=== PATIENT | male | born 1975 | race Caucasian/White ===

== ENCOUNTER 2018-12-15 19:04 | Emergency (ER) | payer OTHER ==
--- NOTE | 2018-12-15 20:18 | XRAY Report ---
Reason: Left hand injury Procedure Date: 12/15/2018 Accession Number: [id number] / [id number] Procedure: XR - Hand 3 View LT CPT Code: FULL RESULT: EXAM: LEFT HAND RADIOGRAPHY EXAM DATE: 12/15/2018 07:58 PM. CLINICAL HISTORY: Trauma COMPARISON: None. TECHNIQUE: 3 views. FINDINGS: Bones: Normal. No fractures or bone lesions. Joints: Normal. No subluxations. Soft Tissues: Normal. No soft tissue swelling. IMPRESSION: Normal hand radiography. [facility]
--- NOTE | 2018-12-15 21:39 | ED Physician Documentation ---
PD HPI UPPER EXT INJURY - Stated complaint Stated Complaint: L HAND INJ - Chief complaint Chief Complaint: Trauma Ext - History obtained from History obtained from: Patient - History of Present Illness Location: Left, Hand Type of injury: Crush (mallet) Where injury occurred: Home Timing - onset: How many hours ago (3) Timing - duration: Hours (3) Timing - details: Abrupt onset Pain level max: 7 Pain level now: 5 Improved by: Rest, Ice Worsened by: Moving, Palpating Associated symptoms: Swelling, Discolored (ecchymosis). No: Weakness, Numbness, Tingling Contributing factors: No: Anticoagulated - Additonal information Additional information: pt is right handed Review of Systems Neurologic: denies: Focal weakness, Numbness PD PAST MEDICAL HISTORY - Past Medical History Past Medical History: No - Past Surgical History Past Surgical History: No - Allergies Allergies/Adverse Reactions: Allergies Allergy/AdvReac Type Severity Reaction Status Date / Time No Known Drug Allergies Allergy Verified 12/15/18 19:26 - Living Situation Living Situation: reports: With family Living Arrangement: reports: At home - Family History Family history: reports: Non contributory - Immunizations Immunizations are current?: Yes Immunizations: TDAP current <10years PD ED PE NORMAL - Vitals Vital signs reviewed: Yes - General General: Alert and oriented X 3, No acute distress - Derm Derm: Warm and dry - Extremities Extremities: Other (L hand - TTP over the 2nd metacarpal. NVI. mild swelling. no deformity. ) - Neuro Neuro: Alert and oriented X 3 Results - Vitals Vitals: Vital Signs - 24 hr 12/15/18 12/15/18 19:23 21:44 Temperature 36.5 C 36.3 C L Heart Rate 75 58 L Respiratory 16 16 Rate Blood Pressure 142/95 H 150/86 H O2 Saturation 99 100 Oxygen O2 Source Room air - Rads (name of study) L hand xray Radiology: Prelim report reviewed, EMP read contemporaneously, See rad report (normal xray) PD MEDICAL DECISION MAKING - ED course Complexity details: reviewed results, re-evaluated patient, considered differential, d/w patient ED course: normal xray. no fracture. Patient declines splint or pain meds. Pt is right handed. Patient counseled regarding signs and symptoms for which I believe and urgent re-evaluation would be necessary. Patient with good understanding of and agreement to plan and is comfortable going home at this time This document was made in part using voice recognition software. While efforts are made to proofread this document, sound alike and grammatical errors may occur. Departure - Departure Disposition: 01 Home, Self Care Clinical Impression: Contusion of left hand Qualifiers: Encounter type: initial encounter Qualified Code(s): S60.222A - Contusion of left hand, initial encounter Condition: Good Instructions: ED Crush Injury Finger No Fx Follow-Up: your,doctor as needed [Other] Comments: Your x-rays do not show any fractures today. Return if you worsen. Follow-up with your doctor for further evaluation and care. Discharge Date/Time: 12/15/18 21:44
[2018-12-15 21:44] VITALS: BP 150/86
== END 2018-12-15 21:44 | disposition home or self-care (01) ==
LOC: ED 19:04
DX: S60.222A Contusion of left hand, initial encounter (principal); W22.8XXA Striking against or struck by other objects, initial encounter; Y92.009 Unspecified place in unspecified non-institutional (private) residence as the place of occurrence of the external cause
CPT/HCPCS: 99282; 99283

== ENCOUNTER 2019-10-27 07:45 | Emergency (ER) | payer OTHER ==
--- NOTE | 2019-10-27 07:53 | ED Physician Documentation ---
PD HPI URI - Stated complaint Stated Complaint: FEVER,COUGH - History obtained from History obtained from: Patient - History of Present Illness Timing - onset: Yesterday Timing duration: Days (1) Timing details: Abrupt onset, Still present Associated symptoms: Fever (mild to 99.8), Dry cough, Dyspnea (some coughing to point of emesis of phlegm). 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 No: Sick contact, Travel, Immunocompromised, COPD / asthma Worsened by: Activity Similar symptoms before: Has not had sx before Recently seen: Not recently seen Review of Systems Constitutional: reports: Fever, Myalgias Nose: reports: Congestion. denies: Rhinorrhea / runny nose Throat: denies: Sore throat Cardiac: denies: Chest pain / pressure Respiratory: reports: Cough. denies: Wheezing GI: reports: Vomiting (couple times with coughing). denies: Diarrhea Skin: denies: Rash Neurologic: denies: Altered mental status, Headache PD PAST MEDICAL HISTORY - Past Medical History Past Medical History: No Cardiovascular: None Respiratory: None - Past Surgical History Past Surgical History: No - Present Medications Home Medications: Ambulatory Orders Medication Instructions Recorded Confirmed Benzonatate [Tessalon Perle] 100 - 200 mg PO TID PRN #30 capsule 10/27/19 Ibuprofen 200 mg PO 10/27/19 guaiFENesin [Guaifenesin] 100 mg PO Q6H PRN #240 ml 10/27/19 - Allergies Allergies/Adverse Reactions: Allergies Allergy/AdvReac Type Severity Reaction Status Date / Time No Known Drug Allergies Allergy Verified 10/27/19 07:58 - Social History Does the pt smoke?: No Smoking Status: Never smoker - Immunizations Immunizations are current?: Yes Immunizations: TDAP current <10years - POLST Patient has POLST: No PD ED PE NORMAL - Vitals Vital signs reviewed: Yes - General General: Alert and oriented X 3, No acute distress, Well developed/nourished - HEENT HEENT: Ears normal, Moist mucous membranes, Pharynx benign - Neck Neck: Supple, no meningeal sign, No adenopathy - Cardiac Cardiac: RRR - Respiratory Respiratory: No respiratory distress, Clear bilaterally, Other (He does have a mild wheeziness type cough with deep breathing.) - Derm Derm: Normal color, Warm and dry, No rash Results - Vitals Vitals: Vital Signs - 24 hr 10/27/19 07:50 Temperature 36.6 C Heart Rate 70 Respiratory 17 Rate Blood Pressure 158/109 H O2 Saturation 98 Oxygen O2 Source Room air - Labs Labs: Laboratory Tests 10/27/19 08:15 Influenza A (Rapid) Negative Influenza B (Rapid) Negative PD MEDICAL DECISION MAKING - ED course Complexity details: reviewed results, considered differential (He is concerned about the coronavirus and influenza given his public interactions for his job and going to a conference next week. He is requesting testing for those and this can be reasonable. We will get the flu test back rapidly today and the coated test in a day or 2. Meanwhile he can decrease public interaction and do good social distancing and personal hygiene. We can impact his cough with some Tessalon and cough medicine.), d/w patient Departure - Departure Disposition: 01 Home, Self Care Clinical Impression: Upper respiratory infection Qualifiers: URI type: unspecified URI Qualified Code(s): J06.9 - Acute upper respiratory infection, unspecified Condition: Stable Record reviewed to determine appropriate education?: Yes Instructions: ED Upper Resp Infec No Abx Tx Prescriptions: Benzonatate [Tessalon Perle] 100 - 200 mg PO TID PRN #30 capsule PRN Reason: Cough guaiFENesin [Guaifenesin] 100 mg PO Q6H PRN #240 ml PRN Reason: Cough Comments: Your influenza test is negative. The coronavirus test will result in 1 to 2 days. Meanwhile you can stay off work and avoid contact with others until the test results. Stay well-hydrated. Use some ibuprofen or naproxen 2-3 times a day for pains and fevers. Add Tylenol if needed. You can add benzonatate if needed for cough as well as cough medicine. Forms: Activity restrictions
[2019-10-27 07:58] VITALS: BP 158/109
[2019-10-27] MEDS ORDERED: CHERRY SYRUP 10 ML UDC PO ONE (08:05)
[2019-10-27] MEDS ORDERED: DEXAMETHASONE 10 MG/ML VIAL PO STA (08:05)
[2019-10-27] MEDS ORDERED: BENZONATATE 100 MG CAPSULE PO STA (08:05)
== END 2019-10-27 09:10 | disposition home or self-care (01) ==
LOC: ED 07:45
DX: J06.9 Acute upper respiratory infection, unspecified (principal)
CPT/HCPCS: 81599; 87275; 87276; 99283; 99284; A9270

== ENCOUNTER 2020-08-06 16:37 | Outpatient (CLI) | payer OTHER | END 2020-08-06 16:38 | disposition home or self-care (01) | LOC: COV 16:37 | PROVIDERS: ATTEND Family Medicine | DX: R50.9 Fever, unspecified (principal); R05 Cough; M79.10 Myalgia, unspecified site; R53.83 Other fatigue; R43.8 Other disturbances of smell and taste; Z20.828 Contact with and (suspected) exposure to other viral communicable diseases ==